=== PATIENT | female | born 2000 | race African-American/Black ===

== ENCOUNTER 2018-07-27 01:46 | Inpatient (IN) | payer OTHER ==
[2018-07-27 02:15] VITALS: BMI 41.5
[2018-07-27] MEDS: Lactated Ringer's 1,000 ML IV SCH ×2 (02:45→05:15)
[2018-07-27] MEDS ORDERED: Butorphanol Tartrate 1 MG/ML VIAL SLOW IVP PRN (02:56)
[2018-07-27] MEDS ORDERED: Promethazine HCl 25 MG/ML VIAL IM PRN ×2 (02:56→05:10)
[2018-07-27] MEDS ORDERED: Ondansetron PF 4 MG/2 ML Vial IVP PRN ×3 (02:56→11:42)
[2018-07-27] MEDS ORDERED: Ibuprofen 800 MG TAB PO PRN (03:00)
[2018-07-27] MEDS ORDERED: NS / Oxytocin 40 units/1000ml 1,000 ML IV SCH ×2 (03:00→11:42)
[2018-07-27] MEDS ORDERED: HYDROcodone/Acetaminophen 5/325 mg Tablet PO PRN ×4 (03:00→11:42)
[2018-07-27] MEDS ORDERED: NS w/ Oxytocin 10 units 500 ML IV SCH ×2 (03:00)
[2018-07-27] MEDS ORDERED: Lidocaine 1% (PF) 30 ML VIAL SC PRN (03:00)
[2018-07-27 03:05] LABS: Hemoglobin 11.5 g/dL (12.0-16.0); Mean Corpuscular HGB CONC 32.6 g/dL (32.0-36.0); Mean Corpuscular Hemoglobin 27.7 pg (25.0-35.0); Mean Corpuscular Volume 85.1 fL (78.0-98.0); Mean Platelet Volume 9.3 fL (7.4-10.4); Platelet Count 256 thou/uL (130-400); RBC Distribution Width 14.3 % (11.5-14.5); Red Blood Cell (RBC) Count 4.17 mill/uL (4.00-5.20); White Blood Cell (WBC) Count 11.9 thou/uL (4.8-10.8)
[2018-07-27 03:45] LABS: HBSAg Index 0.22 S/CO (0-0.99); Hep B Surf Ag Non-Reactive S/CO (NonReactive)
[2018-07-27] MEDS ORDERED: Fentanyl 4 mcg/Bup 0.1% Cadd 100 ML ONE (04:34)
[2018-07-27] MEDS ORDERED: ePHEDrine/0.9% NaCl/PF SYRINGE 50 mg/10 ml SLOW IVP PRN (05:10)
[2018-07-27] MEDS ORDERED: Acetaminophen 325 MG TAB PO PRN (05:10)
[2018-07-27] MEDS ORDERED: Eucerin (Mineral Oil/Petrolatum,White) 30 gm Jar TOP PRN (05:10)
[2018-07-27] MEDS ORDERED: Naloxone HCl 0.4 mg/ml Vial IVP PRN ×2 (05:10)
[2018-07-27] MEDS ORDERED: diphenhydrAMINE 50 MG/ML VIAL IVP PRN (05:10)
[2018-07-27] MEDS ORDERED: Lactated Ringer's 500 ML IV PRN (05:10)
[2018-07-27] MEDS ORDERED: Fentanyl 4 mcg/Bupivacaine 0.1% Cassette 100 ML EPIDURAL SCH (05:15)
[2018-07-27] MEDS ORDERED: Communication Order-Pharmacy FS SCH (05:15)
[2018-07-27 06:00] LABS: Syphilis Antibody Nonreactive (Nonreactive); Syphilis Antibody Index 0.03 S/CO (<1.00 Non-Reactive)
[2018-07-27] MEDS ORDERED: Bupivacaine 0.25% HCL 30 ML VIAL ONE (11:11)
[2018-07-27] MEDS ORDERED: Benzocaine/Menthol 20-0.5% 60 ML CAN TOP PRN (11:42)
[2018-07-27] MEDS ORDERED: Preparation H Ointment 28 GM TUBE PR PRN (11:42)
[2018-07-27] MEDS ORDERED: diphenhydrAMINE 25 MG CAP PO PRN (11:42)
[2018-07-27] MEDS ORDERED: Bisacodyl 10 MG SUPP PR PRN (11:42)
[2018-07-27] MEDS ORDERED: Milk Of Magnesia 30 ML UDCUP PO PRN (11:42)
[2018-07-27] MEDS ORDERED: Docusate Calcium (SURFAK) 240 MG CAP PO SCH (12:00)
[2018-07-27] MEDS ORDERED: Prenatal Vitamin 1 TAB PO SCH (12:00)
[2018-07-27] MEDS: Ibuprofen 800 MG TAB PO SCH ×2 (14:58→21:52)
[2018-07-27] MEDS: Ferrous Sulfate 325 MG TAB PO SCH (17:12)
[2018-07-27] MEDS: Docusate Calcium (SURFAK) 240 MG CAP PO SCH (21:51)
[2018-07-28 05:45] LABS: Mean Corpuscular HGB CONC 32.4 g/dL (32.0-36.0); Mean Corpuscular Hemoglobin 27.9 pg (25.0-35.0); Mean Corpuscular Volume 86.2 fL (78.0-98.0); Mean Platelet Volume 9.3 fL (7.4-10.4); Platelet Count 206 thou/uL (130-400); RBC Distribution Width 14.4 % (11.5-14.5); Red Blood Cell (RBC) Count 3.58 mill/uL (4.00-5.20); White Blood Cell (WBC) Count 14.1 thou/uL (4.8-10.8)
[2018-07-28] MEDS: Ibuprofen 800 MG TAB PO SCH ×3 (06:44→23:07)
[2018-07-28] MEDS: Docusate Calcium (SURFAK) 240 MG CAP PO SCH ×2 (08:08→23:08)
[2018-07-28] MEDS: Prenatal Vitamin 1 TAB PO SCH (08:08)
[2018-07-28] MEDS: Ferrous Sulfate 325 MG TAB PO SCH ×2 (08:09→16:32)
[2018-07-29] MEDS: Ferrous Sulfate 325 MG TAB PO SCH (07:32)
[2018-07-29 08:36] VITALS: BP 117/71; TEMP 98.1
[2018-07-29] MEDS: Ibuprofen 800 MG TAB PO SCH (08:56)
[2018-07-29] MEDS: Prenatal Vitamin 1 TAB PO SCH (08:57)
[2018-07-29] MEDS: Docusate Calcium (SURFAK) 240 MG CAP PO SCH (08:57)
== END 2018-07-29 15:30 | disposition home or self-care (01) | DRG 807 ==
LOC: L&D/OP 01:46 → L&D 02:54 → 3SW 11:28
PROVIDERS: ADMIT Family Medicine; ATTEND Family Medicine
PROC: 10E0XZZ Delivery of Products of Conception, External Approach (ICD-10-PCS; principal; 2018-07-27)
PROC: 0HQ9XZZ Repair Perineum Skin, External Approach (ICD-10-PCS; 2018-07-27)
DX: O70.0 First degree perineal laceration during delivery (principal); Z37.0 Single live birth; Z3A.39 39 weeks gestation of pregnancy
CPT/HCPCS: 36415; 51702; 85027; 86780; 86850; 86900; 86901; 87340; 99285; J0595; J2001; S0020

== ENCOUNTER 2019-06-11 14:42 | Inpatient (IN) | payer OTHER ==
[2019-06-11 15:32] VITALS: BMI 36.1
[2019-06-11] MEDS ORDERED: Diphenoxylate HCl/Atropine Tablet PO PRN (16:20)
[2019-06-11] MEDS ORDERED: Methylergonovine 0.2 MG/ML VIAL IM PRN (16:20)
[2019-06-11] MEDS ORDERED: Ibuprofen 800 MG TAB PO PRN (16:20)
[2019-06-11] MEDS ORDERED: Ondansetron PF 4 MG/2 ML Vial IVP PRN ×2 (16:20→18:50)
[2019-06-11] MEDS ORDERED: Misoprostol 200 MCG TAB PR PRN (16:20)
[2019-06-11] MEDS ORDERED: Butorphanol Tartrate 1 MG/ML VIAL SLOW IVP PRN (16:20)
[2019-06-11] MEDS ORDERED: HYDROcodone/Acetaminophen 5/325 mg Tablet PO PRN (16:20)
[2019-06-11] MEDS ORDERED: Carboprost 250 MCG/ML AMP IM PRN (16:20)
[2019-06-11] MEDS ORDERED: hydrALAZINE 20 MG/ML VIAL SLOW IVP PRN (16:20)
[2019-06-11] MEDS ORDERED: Lidocaine 1% (PF) 30 ML VIAL SC PRN (16:20)
[2019-06-11] MEDS ORDERED: Promethazine HCl 25 MG/ML VIAL IM PRN ×2 (16:20→18:50)
[2019-06-11] MEDS ORDERED: NS w/ Oxytocin 10 units 500 ML IV SCH ×2 (16:30)
[2019-06-11] MEDS: Lactated Ringer's 1,000 ML IV SCH ×2 (16:50→18:17)
[2019-06-11 16:55] LABS: Hemoglobin 11.2 g/dL (12.0-16.0); Mean Corpuscular HGB CONC 32.4 g/dL (32.0-36.0); Mean Corpuscular Hemoglobin 24.5 pg (27.0-31.0); Mean Corpuscular Volume 75.7 fL (78.0-98.0); Mean Platelet Volume 11.5 fL (7.4-10.4); Platelet Count 206 thou/uL (130-400); RBC Distribution Width 16.5 % (11.5-14.5); Red Blood Cell (RBC) Count 4.59 mill/uL (4.20-5.40); White Blood Cell (WBC) Count 9.5 thou/uL (4.8-10.8)
[2019-06-11] MEDS ORDERED: Fentanyl 4 mcg/Bup 0.1% Cadd 100 ML ONE (17:27)
[2019-06-11 17:35] LABS: Syphilis Antibody Nonreactive (Nonreactive); Syphilis Antibody Index 0.03 S/CO (<1.00 Non-Reactive)
[2019-06-11 17:37] LABS: HBSAg Index 0.22 S/CO (0-0.99); Hep B Surf Ag Non-Reactive S/CO (NonReactive)
[2019-06-11] MEDS ORDERED: ePHEDrine/0.9% NaCl/PF SYRINGE 50 mg/10 ml SLOW IVP PRN (18:50)
[2019-06-11] MEDS ORDERED: diphenhydrAMINE 50 MG/ML VIAL IVP PRN (18:50)
[2019-06-11] MEDS ORDERED: Lactated Ringer's 500 ML IV PRN (18:50)
[2019-06-11] MEDS ORDERED: Naloxone HCl 0.4 mg/ml Vial IVP PRN ×2 (18:50)
[2019-06-11] MEDS ORDERED: Acetaminophen 325 MG TAB PO PRN (18:50)
[2019-06-11] MEDS ORDERED: Communication Order-Pharmacy FS SCH (19:00)
[2019-06-11] MEDS ORDERED: Fentanyl 4 mcg/Bupivacaine 0.1% Cassette 100 ML EPIDURAL SCH (19:00)
[2019-06-11] MEDS: NS / Oxytocin 40 units/1000ml 1,000 ML IV PRN ×2 (19:15→20:36)
[2019-06-12] MEDS ORDERED: NS / Oxytocin 40 units/1000ml 1,000 ML IV SCH (03:02)
[2019-06-12] MEDS ORDERED: Milk Of Magnesia 30 ML UDCUP PO PRN (03:02)
[2019-06-12] MEDS ORDERED: Benzocaine-Menthol 82.5 ML CAN TOP PRN (03:02)
[2019-06-12] MEDS ORDERED: Bisacodyl 10 MG SUPP PR PRN (03:02)
[2019-06-12] MEDS ORDERED: HYDROcodone/Acetaminophen 5/325 mg Tablet PO PRN ×2 (03:02)
[2019-06-12] MEDS ORDERED: Ondansetron PF 4 MG/2 ML Vial IVP PRN (03:02)
[2019-06-12] MEDS ORDERED: Promethazine HCl 25 MG/ML VIAL IM PRN (03:02)
[2019-06-12] MEDS ORDERED: hydrALAZINE 20 MG/ML VIAL SLOW IVP PRN (03:02)
[2019-06-12] MEDS ORDERED: Preparation H Ointment 57 gram tube RC PRN (03:02)
[2019-06-12] MEDS ORDERED: diphenhydrAMINE 25 MG CAP PO PRN (03:02)
[2019-06-12] MEDS ORDERED: Ibuprofen 800 MG TAB PO SCH (03:15)
[2019-06-12] MEDS ORDERED: Docusate Calcium (SURFAK) 240 MG CAP PO SCH ×2 (03:15→09:00)
[2019-06-12 05:49] LABS: Hemoglobin 9.4 g/dL (12.0-16.0); Mean Corpuscular HGB CONC 32.2 g/dL (32.0-36.0); Mean Corpuscular Hemoglobin 24.6 pg (27.0-31.0); Mean Corpuscular Volume 76.2 fL (78.0-98.0); Platelet Count 164 thou/uL (130-400); RBC Distribution Width 16.4 % (11.5-14.5); Red Blood Cell (RBC) Count 3.83 mill/uL (4.20-5.40); White Blood Cell (WBC) Count 10.7 thou/uL (4.8-10.8)
[2019-06-12] MEDS: Ibuprofen 800 MG TAB PO SCH ×2 (05:50→14:17)
[2019-06-12] MEDS ORDERED: Prenatal Vitamin 1 TAB PO SCH (09:00)
[2019-06-12] MEDS ORDERED: Adacel (T-DAP) 0.5 ML SYRINGE IM ONE (09:00)
[2019-06-12] MEDS: Ferrous Sulfate 325 MG TAB PO SCH ×2 (09:42→18:36)
[2019-06-12] MEDS ORDERED: Measles/Mumps/Rubella 10 MCG/0.5 ML VIAL SC ONE (17:30)
[2019-06-12 20:39] VITALS: BP 157/84; TEMP 98.4
== END 2019-06-12 20:45 | disposition home or self-care (01) | DRG 807 ==
LOC: L&D/OP 14:42 → L&D 18:43 → 3SW 06-12 04:28
PROVIDERS: ADMIT Family Medicine; ATTEND Family Medicine
PROC: 10E0XZZ Delivery of Products of Conception, External Approach (ICD-10-PCS; principal; 2019-06-11)
PROC: 0HQ9XZZ Repair Perineum Skin, External Approach (ICD-10-PCS; 2019-06-11)
PROC: 3E0234Z Introduction of Serum, Toxoid and Vaccine into Muscle, Percutaneous Approach (ICD-10-PCS; 2019-06-12)
DX: O70.0 First degree perineal laceration during delivery (principal); Z37.0 Single live birth; Z23 Encounter for immunization; Z3A.40 40 weeks gestation of pregnancy
CPT/HCPCS: 36415; 51702; 85027; 86780; 86850; 86900; 86901; 87340; 90707; 99285